=== PATIENT | male | born 1965 | race Two or more races ===

== ENCOUNTER 2021-02-15 22:50 | Emergency (ER) | payer SELFPAY ==
[~2021-02-15] VITALS: Ht 167.6 cm; Wt 74.8 kg
[2021-02-16 00:08] LABS: Basophils # (auto) 0 10 ^3/uL (0-0.2); Basophils % (auto) 0.2 % (0.0-2.0); Eosinophils # (auto) 0 10 ^3/uL (0-0.8); Hematocrit 41.2 % (41.0-53.0); Hemoglobin 13.6 g/dL (13.5-17.5); Lymphocytes # (auto) 1.1 10 ^3/uL (0.4-5.4); Lymphocytes % (auto) 17.3 % (10.0-50.0); Mean Corpuscular Hemoglobin 27.8 pg (28.0-32.0); Mean Corpuscular Volume 84.1 fL (80.0-100.0); Monocytes # (auto) 0.3 10 ^3/uL (0-1.3); Monocytes % (auto) 5.1 % (0.0-12.0); Neutrophils % (auto) 77.4 % (37.0-80.0); White Blood Cell 6.4 10^3/uL (4.4-10.8)
[2021-02-16 00:23] LABS: Albumin 3.4 g/dL (3.4-5.0); BUN/Creatinine Ratio 14.5; Potassium 4.4 mmol/L (3.5-5.1)
[2021-02-16 00:26] LABS: Bilirubin, Total 0.2 mg/dL (0.2-1.0); Total Protein 7.2 g/dL (6.4-8.2)
[2021-02-16] MEDS ORDERED: ONDANSETRON ODT 4 MG TAB PO ONE (03:45)
[2021-02-16] MEDS ORDERED: DexAMETHasone SOD PHOS 10MG/1ML VIAL INJ IV ONE (03:45)
[2021-02-16] MEDS ORDERED: ONDA-144 PO (03:55)
[2021-02-16] MEDS ORDERED: DexAMETHasone SOD PHOS 10MG/1ML VIAL INJ PO ONE (04:00)
[2021-02-16 04:15] VITALS: BP 100/54
== END 2021-02-16 04:23 | disposition home or self-care (01) ==
LOC: ER 22:50
DX: U07.1 COVID-19 (principal); K29.70 Gastritis, unspecified, without bleeding
CPT/HCPCS: 36415; 80053; 85025; 99283; J1100; Q0162